=== PATIENT | female | born 1970 | race American Indian/Alaskan Native ===

== ENCOUNTER 2021-01-21 03:08 | Emergency (ER) | payer MEDICAID ==
[2021-01-21] MEDS ORDERED: hydrOXYzine PAMOATE 25 MG CAP PO ONE (03:23)
[2021-01-21] MEDS ORDERED: predniSONE 20 MG TAB PO ONE (03:23)
[2021-01-21] MEDS ORDERED: FAMOTIDINE 20 MG TAB PO ONE (03:23)
--- NOTE | 2021-01-21 03:29 | Emergency Department Report ---
ED Allergic Reaction HPI - General Chief complaint: Skin Rash Stated complaint: ALLERGIC REACTION/RASH Source: patient Mode of arrival: Ambulatory Limitations: No Limitations - History of Present Illness Initial Comments: Patient is a 50-year-old -[place] female with a history of hypertension who presents to the ED with complaint of acute onset persistent diffuse itchy erythematous maculopapular urticarial rashes for the last 2 days with no known etiology. Patient states that nothing in her house was changed including foods, detergents, fabric or lotions. Patient states that the symptoms started mildly but over the last 36 hours the itching got worse as well as the rashes. Patient states that she has taken [id number] medications, Benadryl and also appli ed hydrocortisone cream on her with no relief. Patient denies swollen lips or tongue, swollen throat, dysphagia, dysphonia, nasal and sinus congestion, swollen eyelids, cough, wheezing, chest pain or shortness of breath, nausea, vomiting, diarrhea or abdominal pain, fever and chills. MD Complaint: allergic reaction, hives, other (Diffuse itchy erythematous rashes) -: Sudden, days(s) (2) Exposure: unknown Symptoms: rash, itching. denies: facial swelling, lip swelling, difficulty swallowing, difficulty breathing, orolingual swelling, hoarseness, syncopy, dizziness, nausea, vomiting, other, abdominal pain Severity: severe Treatment Prior to Arrival: benadryl, topical medicine Previous Allergy History: none - Related Data Previous Rx's Medication Instructions Recorded Last Taken Type Famotidine [Pepcid] 20 mg PO BID #30 tablet 01/21/21 Unknown Rx hydrOXYzine PAMOATE [Vistaril] 50 mg PO Q8HR PRN #30 capsule 01/21/21 Unknown Rx predniSONE [Deltasone] 60 mg PO QDAY #15 tab 01/21/21 Unknown Rx ED Review of Systems ROS: Stated complaint: ALLERGIC REACTION/RASH Other details as noted in HPI Constitutional: denies: chills, fever Eyes: denies: eye pain, eye discharge, vision change ENT: denies: ear pain, throat pain Respiratory: denies: cough, shortness of breath, wheezing Cardiovascular: denies: chest pain, palpitations Endocrine: no symptoms reported Gastrointestinal: denies: abdominal pain, nausea, diarrhea Genitourinary: denies: urgency, dysuria, discharge Musculoskeletal: denies: back pain, joint swelling, arthralgia Skin: rash (Diffuse erythematous maculopapular urticarial itchy rashes), change in color, pruritus. denies: lesions Neurological: denies: headache, weakness, paresthesias Psychiatric: denies: anxiety, depression Hematological/Lymphatic: denies: easy bleeding, easy bruising ED Past Medical Hx - Past Medical History Hx Hypertension: Yes - Medications Home Medications: Home Medications Medication Instructions Recorded Confirmed Last Taken Type Famotidine [Pepcid] 20 mg PO BID #30 tablet 01/21/21 Unknown Rx hydrOXYzine PAMOATE [Vistaril] 50 mg PO Q8HR PRN #30 capsule 01/21/21 Unknown Rx predniSONE [Deltasone] 60 mg PO QDAY #15 tab 01/21/21 Unknown Rx ED Physical Exam - General General appearance: alert, in no apparent distress - Head Head exam: Present: atraumatic, normocephalic, normal inspection - Eye Eye exam: Present: normal appearance, PERRL, EOMI Pupils: Present: normal accommodation - ENT ENT exam: Present: normal exam, normal orophraynx, mucous membranes moist, TM's normal bilaterally, normal external ear exam - Neck Neck exam: Present: normal inspection, full ROM - Respiratory Respiratory exam: Present: normal lung sounds bilaterally. Absent: respiratory distress, wheezes, rales, rhonchi, chest wall tenderness, accessory muscle use, decreased breath sounds, prolonged expiratory - Cardiovascular Cardiovascular Exam: Present: regular rate, normal rhythm, normal heart sounds. Absent: systolic murmur, diastolic murmur, rubs, gallop - GI/Abdominal GI/Abdominal exam: Present: soft, normal bowel sounds. Absent: tenderness, guarding, rebound, hyperactive bowel sounds, hypoactive bowel sounds, organomegaly, mass - Extremities Exam Extremities exam: Present: normal inspection, full ROM, normal capillary refill - Back Exam Back exam: Present: normal inspection, full ROM. Absent: tenderness, CVA tenderness (R), CVA tenderness (L), muscle spasm - Neurological Exam Neurological exam: Present: alert, oriented X3, CN II-XII intact, normal gait, reflexes normal - Psychiatric Psychiatric exam: Present: normal affect, normal mood - Skin Skin exam: Present: warm, dry, intact, rash (Diffuse erythematous maculopapular urticarial rashes), erythema, urticaria ED Medical Decision Making - Medical Decision Making This is a 50-year-old -[place] female with a history of hypertension who presents to the ED with complaint of acute onset persistent diffuse itchy erythematous maculopapular urticarial rashes for the last 2 days with no known etiology. Patient states that nothing in her house was changed including foods, detergents, fabric or lotions. Patient states that the symptoms started mildly but over the last 36 hours the itching got worse as well as the rashes. Patient states that she has taken [id number] medications, Benadryl and also applied hydrocortisone cream on her with no relief. In the ED, patient is alert and oriented x3 and is not in distress. Patient was treated in the ED for acute allergic reaction with steroids, Vistaril and Pepcid. On reevaluation, patient symptoms improved significantly itching resolved. Patient was discharged home on medications and advised to follow-up with her primary care physician in 5 to 7 days for reevaluation. Patient was advised return to the ED immediately if symptoms get worse. - Differential Diagnosis Acute urticaria; anaphylaxis; allergic reaction; dermatitis Critical care attestation.: If time is entered above; I have spent that time in minutes in the direct care of this critically ill patient, excluding procedure time. ED Disposition Clinical Impression: Acute urticaria, Itching with irritation Acute allergic reaction Qualifiers: Encounter type: initial encounter Qualified Code(s): T78.40XA - Allergy, unspecified, initial encounter Disposition: DC-01 TO HOME OR SELFCARE Is pt being admited?: No Does the pt Need Aspirin: No Condition: Stable Instructions: Allergies, Adult, [id number], Rash, Adult, [id number], Hives, Tjus-ls-Nuld Additional Instructions: Take medication with food, drink plenty of fluids and follow-up with your primary care physician in 5 to 7 days for reevaluation. Return to the ED immediately if symptoms get worse. Prescriptions: predniSONE [Deltasone] 60 mg PO QDAY #15 tab Famotidine [Pepcid] 20 mg PO BID #30 tablet hydrOXYzine PAMOATE [Vistaril] 50 mg PO Q8HR PRN #30 capsule PRN Reason: Allergic Reaction Referrals: KINA PAUL [Primary Care Provider] - 3-5 Days Forms: Work/School Release Form(ED) Time of Disposition: 03:28 Print Language: [id number]
[2021-01-21 03:30] VITALS: BP 151/83
== END 2021-01-21 04:59 | disposition home or self-care (01) ==
LOC: ED 03:08
DX: T78.40XA Allergy, unspecified, initial encounter (principal); L50.9 Urticaria, unspecified; L29.9 Pruritus, unspecified; I10 Essential (primary) hypertension; Z79.899 Other long term (current) drug therapy; X58.XXXA Exposure to other specified factors, initial encounter
CPT/HCPCS: 99282; J7512; Q0177